=== PATIENT | male | born 1990 | race Caucasian/White ===

== ENCOUNTER 2016-08-19 03:28 | Emergency (ER) | payer OTHER ==
[~2016-08-19] VITALS: Ht 180.3 cm; Wt 65.0 kg
[2016-08-19 03:43] VITALS: BP 107/56; PULSE 77; RESP 20; TEMP 97.8; O2SAT 98
[2016-08-19] MEDS ORDERED: TRAZ100T4 PO (03:43)
[2016-08-19] MEDS ORDERED: DIVA250ER PO (03:43)
[2016-08-19] MEDS ORDERED: RISP0.5T20 PO (03:43)
[2016-08-19 04:09] LABS: AUTOMATED NEUTROPHIL # 5.5 TH/MM3 (1.8-7.7); BASOPHIL % 0.4 % (0.0-2.0); EOSINOPHIL # 0.3 TH/MM3 (0-0.4); EOSINOPHIL % 3.1 % (0.0-4.0); HEMATOCRIT 42.1 % (39.0-51.0); HEMO FLAGS DIFF FINAL; LYMPH % 30.8 % (9.0-44.0); MEAN CELL VOLUME 100.3 FL (80.0-100.0); MEAN CORPUSCULAR HEMOGLOBIN 35.3 PG (27.0-34.0); MEAN CORPUSCULAR HGB CONC 35.2 % (32.0-36.0); MONO % 9.3 % (0.0-8.0); NEUT % 56.4 % (16.0-70.0); PLATELET COUNT 159 TH/MM3 (150-450); RED CELL DISTRIBUTION WIDTH 13.4 % (11.6-17.2); WHITE BLOOD COUNT 9.8 TH/MM3 (4.0-11.0)
[2016-08-19 04:12] LABS: ALT (GPT) 50 U/L (12-78); ANION GAP 7 MEQ/L (5-15); AST (GOT) 41 U/L (15-37); BICARBONATE 29.6 MEQ/L (21.0-32.0); BLOOD UREA NITROGEN 9 MG/DL (7-18); CHLORIDE 109 MEQ/L (98-107); GLOMERULAR FILTRATION RATE 102 ML/MIN (>89); POTASSIUM 3.5 MEQ/L (3.5-5.1); SODIUM (NA) 146 MEQ/L (136-145)
[2016-08-19 04:14] LABS: ALKALINE PHOSPHATASE 70 U/L (45-117); TOTAL BILIRUBIN ADULT 0.3 MG/DL (0.2-1.0)
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
[2016-08-19 06:44] VITALS: BP 113/55; PULSE 54; RESP 19; O2SAT 99
[2016-08-19 07:11] LABS: AMPHETAMINE, URINE NEG (NEG); BARBITURATES, URINE NEG (NEG); COCAINE, URINE NEG (NEG)
[2016-08-19 11:11] VITALS: BP 123/59; PULSE 67; RESP 18; O2SAT 98
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
== END 2016-08-19 12:53 | disposition home or self-care (01) ==
LOC: NEPA 03:28 → NEPJ 12:53
DX: F19.94 Other psychoactive substance use, unspecified with psychoactive substance-induced mood disorder (principal); T43.224A Poisoning by selective serotonin reuptake inhibitors, undetermined, initial encounter; F10.20 Alcohol dependence, uncomplicated; Y92.009 Unspecified place in unspecified non-institutional (private) residence as the place of occurrence of the external cause
CPT/HCPCS: 80053; 80164; 80307; 80320; 85025; 99284

== ENCOUNTER 2016-10-18 23:01 | Emergency (ER) | payer OTHER ==
[~2016-10-18 23:01] MED LIST: DIVA250ER PO; RISP0.5T20 PO; TRAZ100T4 PO
[2016-10-18 23:13] VITALS: BP 117/68; PULSE 76; RESP 20; TEMP 98.2; O2SAT 98
[2016-10-18] MEDS ORDERED: DIVA250ER PO (23:19)
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
[2016-10-18 23:49] LABS: AUTOMATED NEUTROPHIL # 3.7 TH/MM3 (1.8-7.7); BASOPHIL % 0.5 % (0.0-2.0); EOSINOPHIL # 0.4 TH/MM3 (0-0.4); EOSINOPHIL % 4.3 % (0.0-4.0); HEMATOCRIT 41.3 % (39.0-51.0); HEMO FLAGS DIFF FINAL; LYMPH % 44.5 % (9.0-44.0); LYMPHOCYTE # 4.1 TH/MM3 (1.0-4.8); MEAN CELL VOLUME 100.4 FL (80.0-100.0); MEAN CORPUSCULAR HEMOGLOBIN 35.4 PG (27.0-34.0); MEAN CORPUSCULAR HGB CONC 35.2 % (32.0-36.0); MONO % 10.1 % (0.0-8.0); NEUT % 40.6 % (16.0-70.0); PLATELET COUNT 194 TH/MM3 (150-450); RED BLOOD COUNT 4.12 MIL/MM3 (4.50-5.90); RED CELL DISTRIBUTION WIDTH 12.7 % (11.6-17.2); WHITE BLOOD COUNT 9.1 TH/MM3 (4.0-11.0)
[2016-10-19 00:03] LABS: ALT (GPT) 23 U/L (12-78); ANION GAP 9 MEQ/L (5-15); AST (GOT) 15 U/L (15-37); BLOOD UREA NITROGEN 11 MG/DL (7-18); CHLORIDE 111 MEQ/L (98-107); GLOMERULAR FILTRATION RATE 77 ML/MIN (>89); POTASSIUM 3.7 MEQ/L (3.5-5.1); SODIUM (NA) 146 MEQ/L (136-145)
[2016-10-19 00:05] LABS: ALKALINE PHOSPHATASE 66 U/L (45-117); TOTAL BILIRUBIN ADULT 0.2 MG/DL (0.2-1.0)
[2016-10-19] MEDS ORDERED: FLUMAZENIL 0.5 MG/5 ML VIAL IV PUSH PRN (00:45)
[2016-10-19] MEDS ORDERED: LORazepam 2 MG/ML VIAL IV PUSH PRN ×4 (00:45)
[2016-10-19] MEDS ORDERED: LORazepam 1 MG TAB PO PRN (00:45)
[2016-10-19] MEDS ORDERED: LORazepam 2 MG TAB PO PRN (00:45)
[2016-10-19 05:00] VITALS: BP 106/55; PULSE 67; RESP 16; O2SAT 97
[2016-10-19 07:20] VITALS: BP 110/58; PULSE 60; RESP 18; O2SAT 95
[2016-10-19 11:20] VITALS: BP 128/60; PULSE 60; RESP 17; O2SAT 97
[2016-10-19 13:08] VITALS: BP 130/60
== END 2016-10-19 13:10 ==
LOC: NEPE 23:01 → NEPA 10-19 13:10
DX: F10.94 Alcohol use, unspecified with alcohol-induced mood disorder (principal); F10.120 Alcohol abuse with intoxication, uncomplicated; Z72.0 Tobacco use
CPT/HCPCS: 80053; 80307; 85025; 99285